=== PATIENT | female | born 1945 | race Caucasian/White ===

== ENCOUNTER 2018-11-09 20:07 | Inpatient (IN) | payer MEDICARE ==
[~2018-11-09] VITALS: Ht 157.5 cm; Wt 102.0 kg
[2018-11-09 20:00] VITALS: BP 125/51
--- NOTE | 2018-11-09 20:35 | NUR ---
PATIENT ARRIVED TO ICU VIA MED FLIGHT. PATIENT INTUBATED IN ROUTE, SEE [facility] VENT FLOWSHEET. RESTRAINTS IN USE. INITIAL ADMISSION ASSESSMENT COMPLETED, SEE FLOWSHEET. FAMILY NOT PRESENT AT THIS TIME. WILL MONITOR CLOSELY THROUGH OUT THE NIGHT.
[2018-11-09 21:00] VITALS: BP 105/66; BP 97/57; BMI 10.0
[2018-11-09 22:00] VITALS: BP 112/64
[2018-11-09 23:00] VITALS: BP 104/50; BP 97/65
--- NOTE | 2018-11-09 23:00 | NUR ---
PATIENT WAKING UP, COUGHING AND BITING ON OETT. VENT BUNDLE ORDER PLACED AND SEDATION ORDERS. SHIFT REASSESSMENT COMPLETED, SEE FLOWSHEET. DR. PARKINSON AT BEDSIDE TO ASSESS PATIENT AND PUT IN ORDERS. CXR DONE AND SHE VIEWED IT. ANTIBIOTICS ALSO ORDERED AT THIS TIME. VSS. NO ACUTE CHANGES NOTED. WILL CTM.
[2018-11-09 23:47] LABS: BASOPHILS 0.1 % (0-2); EOSINOPHILS 0.6 % (0-7); HEMATOCRIT 36.6 % (36.0-48.0); HEMOGLOBIN 10.5 g/dL (12-16); IMMATURE GRANULOCYTES 0.3 % (0-5); LYMPHOCYTES 10.6 % (15-50); MCH 29.1 pg (26.0-34.0); MCHC 28.7 g/dL (31.0-37.0); MCV 101.4 fL (80.0-100.0); MEAN PLATELET VOLUME 10.6 fL (7.4-10.4); MONOCYTES 6.9 % (2-11); NEUTROPHILS 81.5 % (40-80); PLATELET COUNT 117 10x3/uL (130-400); RBC 3.61 10x6/uL (4.00-5.40); RDW 15.7 % (11.5-14.5); WBC 11.9 10x3/uL (4.8-10.8)
[2018-11-10] VITALS (24 sets, daily range): BP systolic 90–142; BP diastolic 41–84
[2018-11-10 00:48] LABS: ALBUMIN 2.6 g/dL (3.4-5.0); ALKALINE PHOSPHATASE 49 U/L (46-116); ALT (SGPT) 28 U/L (10-68); BILIRUBIN - TOTAL 0.84 mg/dL (0.2-1.3); CALC OSMOLALITY 286 mosm/kg (275-300); CALCIUM 8.1 mg/dL (8.5-10.1); CHLORIDE - SERUM 90 mmol/L (98-107); CREATININE - SERUM 0.8 mg/dL (0.6-1.3); GLUCOSE 102 mg/dL (74-106); POTASSIUM - SERUM 4.7 mmol/L (3.5-5.1); PROTEIN - SERUM 5.4 g/dL (6.4-8.2); SODIUM 140 mmol/L (136-145); UREA NITROGEN 36 mg/dL (7-18); eGFR NON AFRICAN AMERICAN 75 mL/min (90-120)
--- NOTE | 2018-11-10 01:00 | NUR ---
PATIENT APPEARS TO BE RESTING MORE COMFORTABLY WITH THE PROPOFOL IN USE. VSS. WILL CTM.
--- NOTE | 2018-11-10 03:00 | NUR ---
SHIFT REASSESSMENT COMPLETED, SEE FLOWSHEET. VSS. PATIENT RESTING COMFORTABLY. WILL CTM.
[2018-11-10 04:49] LABS: BASOPHILS 0 % (0-2); EOSINOPHILS 0.5 % (0-7); HEMATOCRIT 34.3 % (36.0-48.0); HEMOGLOBIN 9.8 g/dL (12-16); IMMATURE GRANULOCYTES 0.4 % (0-5); LYMPHOCYTES 10.8 % (15-50); MCH 28.7 pg (26.0-34.0); MCHC 28.6 g/dL (31.0-37.0); MCV 100.6 fL (80.0-100.0); MEAN PLATELET VOLUME 10.9 fL (7.4-10.4); MONOCYTES 6.8 % (2-11); NEUTROPHILS 81.5 % (40-80); PLATELET COUNT 120 10x3/uL (130-400); RBC 3.41 10x6/uL (4.00-5.40); RDW 15.6 % (11.5-14.5); WBC 10.8 10x3/uL (4.8-10.8)
[2018-11-10 04:58] LABS: ALBUMIN 2.2 g/dL (3.4-5.0); ALKALINE PHOSPHATASE 44 U/L (46-116); ALT (SGPT) 29 U/L (10-68); BILIRUBIN - TOTAL 0.71 mg/dL (0.2-1.3); CALC OSMOLALITY 287 mosm/kg (275-300); CALCIUM 7.5 mg/dL (8.5-10.1); CHLORIDE - SERUM 95 mmol/L (98-107); CREATININE - SERUM 0.8 mg/dL (0.6-1.3); GLUCOSE 94 mg/dL (74-106); PROTEIN - SERUM 4.9 g/dL (6.4-8.2); SODIUM 141 mmol/L (136-145); UREA NITROGEN 33 mg/dL (7-18); eGFR NON AFRICAN AMERICAN 75 mL/min (90-120)
--- NOTE | 2018-11-10 05:00 | NUR ---
PATIENT MORE AGITATED AND RESTLESS, BITING THE OETT. SEDATION INCREASED TO 15MCG/KG/MIN WITH LITTLE RELIEF, SO INCREASED TO 20MCG/KG/MIN. PATIENT APPEARS TO BE RESTING COMFORTABLY. VSS. WILL CTM.
[2018-11-10 05:05] LABS: CARBON DIOXIDE 45.1 mmol/L (21.0-32.0)
[2018-11-10 06:04] LABS: MAGNESIUM - SERUM 2.7 mg/dL (1.8-2.4)
[2018-11-10 06:05] LABS: PHOSPHOROUS 1.3 mg/dL (2.5-4.9)
--- NOTE | 2018-11-10 07:11 | NUR ---
LYING IN BED ON VENT. PT FOLLOWS COMMANDS AND NODS/SHAKES HEAD. NO ACUTE DISTRESS NOTED. PT TURNED Q2H. WILL CONTINUE PLAN OF CARE.
--- NOTE | 2018-11-10 09:11 | NUR ---
NO ACUTE DISTRESS NOTED. PT LYING IN BED ON VENT. TURNED Q2H. WILL CONTINUE PLAN OF CARE.
--- NOTE | 2018-11-10 11:29 | NUR ---
PER MALA TAYLOR TO ORDER ELECTROLYTE PROTOCOL REGARDING ELECTROLYTE IMBALANCE.
--- NOTE | 2018-11-10 12:31 | NUR ---
FAMILY AT BEDSIDE. UPDATES GIVEN. NO ACUTE DISTRESS NOTED. PT TURNED Q2H. WILL CONTINUE PLAN OF CARE.
--- NOTE | 2018-11-10 14:26 | NUR ---
PHOSPEROUS LEVEL 1.3, WILL REPLACE PER ELECTROLYTE PROTOCOL WHEN RECIEVE FROM PHARMACY.
--- NOTE | 2018-11-10 14:29 | NUR ---
PER DR LOYD, START OGT FEEDS OF PULMOCARE AT 10ML/HR WITH GOAL OF 45ML/HR UNTIL DIETARY CAN SEE PT. FLUSH OF 50ML Q2H.
--- NOTE | 2018-11-10 15:06 | NUR ---
PROPOFOL TITRATED TO ORDER.
--- NOTE | 2018-11-10 16:09 | NUR ---
OGT PLACED AT THIS TIME PER PHYSICIAN ORDERS TO START TUBE FEEDS, 16F, PLACEMENT VERIFIED VIA AUSCULTATION. ALSO SECONDARY IV STARTED TO RT UPPER ARM 22G, FLUSHES WELL. PT TURNED Q2H. FAMILY AT BEDSIDE. NO ACUTE DISTRESS NOTED. WILL START TUBE FEEDS WHEN RECIEVE FROM DIETARY. WILL CONTINUE PLAN OF CARE.
--- NOTE | 2018-11-10 17:00 | NUR ---
TUBE FEEDS STARTED AT THIS TIME PER PHYSICIAN ORDERS. PULMOCARE AT 10ML/HR STARTING RATE. OGT PLACEMENT VERIFIED VIA AUSCULTATION. NO ACUTE DISTRESS NOTED. FAMILY AT BEDSIDE. PT TURNED Q2H. WILL CONTINUE PLAN OF CARE.
--- NOTE | 2018-11-10 20:15 | NUR ---
ABX NOT AVAILABLE IN [facility]. HOUSE SUP NOTIFIED.
[2018-11-11] VITALS (24 sets, daily range): BP systolic 110–158; BP diastolic 40–95; BMI 40.6
[2018-11-11 04:03] LABS: BASOPHILS 0 % (0-2); EOSINOPHILS 0 % (0-7); HEMATOCRIT 32.6 % (36.0-48.0); HEMOGLOBIN 10.1 g/dL (12-16); IMMATURE GRANULOCYTES 0.2 % (0-5); LYMPHOCYTES 3.8 % (15-50); MCH 28.8 pg (26.0-34.0); MEAN PLATELET VOLUME 11.1 fL (7.4-10.4); MONOCYTES 2.8 % (2-11); NEUTROPHILS 93.2 % (40-80); RBC 3.51 10x6/uL (4.00-5.40); WBC 11.1 10x3/uL (4.8-10.8)
[2018-11-11 04:18] LABS: MCV 92.9 fL (80.0-100.0); PLATELET COUNT 147 10x3/uL (130-400)
[2018-11-11 04:33] LABS: ALBUMIN 2.3 g/dL (3.4-5.0); ANION GAP 14.1 mmol/L (8-16); BILIRUBIN - TOTAL 0.52 mg/dL (0.2-1.3); CALCIUM 7.3 mg/dL (8.5-10.1); CARBON DIOXIDE 35.8 mmol/L (21.0-32.0); PROTEIN - SERUM 5.5 g/dL (6.4-8.2)
[2018-11-11 04:51] LABS: CREATININE - SERUM 1.3 mg/dL (0.6-1.3)
[2018-11-11 04:52] LABS: POTASSIUM - SERUM 2.9 mmol/L (3.5-5.1)
[2018-11-11 05:28] LABS: MAGNESIUM - SERUM 2.6 mg/dL (1.8-2.4)
[2018-11-11 05:30] LABS: PHOSPHOROUS 4.6 mg/dL (2.5-4.9)
--- NOTE | 2018-11-11 07:32 | NUR ---
OGT ADVANCED AT THIS TIME AFTER PLACEMENT ASSESSED VIA AUSCULTATION. AFTER ADVANCED, OGT IS NOW IN PROPER PLACE PER AUSCULTATION. NO RESIDUAL NOTED TO OGT. TUBE FEEDS ALSO INCREASED AT THIS TIME FROM 10 TO 20ML/HR. WILL CONTINUE PLAN OF CARE.
--- NOTE | 2018-11-11 08:24 | NUR ---
NO ACUTE DISTRESS NOTED. PT LYING IN BED ON VENT. NO ACUTE DISTRESS NOTED. PT MOVES EXTREMITIES, WHEN ASKING PT TO FOLLOW COMMANDS SHE BEGINS TO SHAKE HEAD, PT NOT CURRENTLY FOLLOWING COMMANDS. TURNED Q2H. WILL CONTINUE PLAN OF CARE.
--- NOTE | 2018-11-11 10:31 | NUR ---
PER DEVELOPMENT PLANNER, ORDER PICC LINE CONSULT.
--- NOTE | 2018-11-11 12:06 | NUR ---
FAMILY AT BEDSIDE. UPDATES GIVEN. NO ACUTE DISTRESS NOTED. WILL CONTNIUE PLAN OF CARE.
--- NOTE | 2018-11-11 12:47 | NUR ---
Nutrition Note: Chart reviewed. Spoke with RN; per , RD to provide goal rate and H20 flushes. Noted current Diprivan rate is 34.9 ml/hr providing 921 kcal/d. Will put order in to advance TF rate to 25 ml/hr with no increase for now (other kcal source Diprivan). H2O flushes 20 ml/hr. RD will continue to monitor pt progress and adjust TF rate as Diprivan rate decreases.
--- NOTE | 2018-11-11 14:37 | NUR ---
LYING IN BED ON VENT AT THIS TIME. NO ACUTE DISTRESS NOTED. PT TURNED Q2H. BED ALARM ON. WILL CONTINUE PLAN OF CARE.
--- NOTE | 2018-11-11 15:05 | MORECARE ---
CASE MANAGEMENT DISCHARGE SUMMARY PATIENT: JUAREZ MCCORMICK UNIT: [id number] ADM DATE: 11/09/18 AGE: 73 : 47 SEX: F ROOM/BED: D.2306 AUTHOR: MAK RAMIREZ PHYSICIAN: REFERRING PHYSICIAN: HEMAL COLE MD DATE OF SERVICE: 11/11/18 Discharge Plan Patient Name: JUAREZ MCCORMICK Facility: [facility]:[place] : 1945 Planned Disposition: Anticipated Discharge Date: Discharge Date: Expected LOS: Initial Reviewer: [email or web address] Initial Review Date: 11/09/2018 Generated: 11/11/18 4:05 pm Patient Name: JUAREZ MCCORMICK Page [id number] at 1505 All edits/amendments must be made on the electronic document DICTATION DATE: 11/11/18 1505 GAMBLING CASHIER: SHAYLA 11/11/18 1505 RPT#: [id number] DC DATE: STATUS: ADM IN [facility] [address] [place] [address] END OF REPORT
--- NOTE | 2018-11-11 16:38 | NUR ---
FAMILY AT BEDSIDE. NO ACUTE DISTRESS NOTED. WILL CONTINUE PLAN OF CARE.
--- NOTE | 2018-11-11 18:08 | NUR ---
POTASSIUM REPLACEMENT PROVIDED VIA ELECTROLYTE PROTOCOL.
--- NOTE | 2018-11-11 19:45 | NUR ---
RECEIVED CARE OF PT, ASSESSMENT PER FLOWSHEET. PT INTUBATED AND SEDATED ON 65 MCG/KG/MIN OF PROPOFOL, SEDATED BUT ABLE TO FOLLOW COMMANDS. HR SR ON CM, PPP, SMITH CATH PATENT, POSITIONED FOR COMFORT, ORAL CARE AND SUCTIONING PROVIDED.
--- NOTE | 2018-11-11 21:15 | NUR ---
NO VISITORS PRESENT AT THIS TIME, VSS, CONT TO MONITOR.
--- NOTE | 2018-11-11 23:30 | NUR ---
REASSESSMENT PER FLOWSHEET, NO ACUTE CHANGES NOTED AT THIS TIME. ORAL CARE AND SUCTIONING PROVIDED, POSITIONED FOR COMFORT, VSS.
[2018-11-12] VITALS (24 sets, daily range): BP systolic 111–151; BP diastolic 44–101
--- NOTE | 2018-11-12 01:40 | NUR ---
PT POSITIONED FOR COMFORT SUPPORTED WITH WEDGES, ORAL CARE PROVIDED.
[2018-11-12 05:35] LABS: BASOPHILS 0.1 % (0-2); EOSINOPHILS 0 % (0-7); HEMATOCRIT 32.9 % (36.0-48.0); HEMOGLOBIN 10.4 g/dL (12-16); IMMATURE GRANULOCYTES 0.4 % (0-5); LYMPHOCYTES 3.3 % (15-50); MCH 29.1 pg (26.0-34.0); MCHC 31.6 g/dL (31.0-37.0); MCV 91.9 fL (80.0-100.0); MEAN PLATELET VOLUME 10.7 fL (7.4-10.4); MONOCYTES 6.1 % (2-11); NEUTROPHILS 90.1 % (40-80); PLATELET COUNT 154 10x3/uL (130-400); RBC 3.58 10x6/uL (4.00-5.40); RDW 16.2 % (11.5-14.5)
[2018-11-12 05:39] LABS: WBC 16.5 10x3/uL (4.8-10.8)
[2018-11-12 06:02] LABS: ALBUMIN 2.4 g/dL (3.4-5.0); ANION GAP 9.5 mmol/L (8-16); BILIRUBIN - TOTAL 0.36 mg/dL (0.2-1.3); CALCIUM 7.4 mg/dL (8.5-10.1); CARBON DIOXIDE 36.1 mmol/L (21.0-32.0); CREATININE - SERUM 1.1 mg/dL (0.6-1.3); MAGNESIUM - SERUM 2.7 mg/dL (1.8-2.4); PHOSPHOROUS 4.9 mg/dL (2.5-4.9); PROTEIN - SERUM 5.8 g/dL (6.4-8.2)
[2018-11-12 06:04] LABS: POTASSIUM - SERUM 2.6 mmol/L (3.5-5.1)
--- NOTE | 2018-11-12 06:21 | NUR ---
1 OF 3 20MEQ KCL RIDERS INITIATED TO TREAT K+ OF 2.6 ON AM LAB PER ELECTROLYTE PROTOCOL.
--- NOTE | 2018-11-12 08:31 | NUR ---
LYING IN BED ON VENT AT THIS TIME. DIPROVAN TITRATED TO ORDER. NO ACUTE DISTRESS NOTED. PT SEDATED, AWAKENS TO DEEP STIMULI. TURNED Q2H. WILL CONTINUE PLAN OF CARE.
--- NOTE | 2018-11-12 10:23 | NUR ---
POTASSIUM REPLACEMENT AND RECHECK PROVIDED VIA ELECTROLYTE PROTOCOL. NO ACUTE DISTRESS NOTED. WILL CONTINUE PLAN OF CARE.
--- NOTE | 2018-11-12 12:58 | NUR ---
PT NOTED MOVING EXTREMITIES TOWARDS BLANKET. NURSE ASKED PT IF SHE WAS HOT. PT NODDED HEAD FOR YES. LINENS REPOSITIONED WELL PT REPOSITIONED. ASKED PT IF SHE WAS MORE COMFORTABLE, SHE NODDED HEAD. FAMILY AT BEDSIDE AT THIS TIME. QUESTIONS ANSWERED. NO ACUTE DISTRESS NOTED. PT TURNED Q2H. WILL CONTINUE PLAN OF CARE.
--- NOTE | 2018-11-12 14:23 | NUR ---
NO ACUTE DISTRESS NOTED. NO CHANGE. PT TURNED Q2H. BED ALARM. DIPROVAN TITRATED TO ORDER. WILL CONTINUE PLAN OF CARE.
--- NOTE | 2018-11-12 16:37 | NUR ---
NO CHANGE. NO ACUTE DISTRESS NOTED. PT FOLLOWS COMMANDS. TURNED Q2H. BED ALARM ON. WILL CONTINUE PLAN OF CARE.
--- NOTE | 2018-11-12 18:20 | NUR ---
SPOKE WITH PTS DAUGHTER. UPDATES GIVEN. PT TURNED Q2H. BED ALARM ON. NO ACUTE DISTRESS NOTED. WILL CONTINUE PLAN OF CARE.
--- NOTE | 2018-11-12 19:00 | NUR ---
RECEIVED PATIENT FROM DAY SHIFT RN. PATIENT INTUBATED AND SEDATED. INITIAL SHIFT ASSESSMENT COMPLETED, SEE FLOWSHEET. FAMILY NOT PRESENT AT THIS TIME. WILL MONITOR CLOSELY THROUGH OUT THE NIGHT.
--- NOTE | 2018-11-12 21:00 | NUR ---
PM MEDS GIVEN PER MD ORDERS, SEE MAR. VSS. NO ACUTE CHANGES NOTED. Q2H TURN IN AFFECT. WILL CTM CLOSELY.
--- NOTE | 2018-11-12 23:00 | NUR ---
SHIFT REASSESSMENT COMPLETED, SEE FLOWSHEET. VSS. NO CHANGES NOTED. WILL CTM.
[2018-11-13] VITALS (24 sets, daily range): BP systolic 90–159; BP diastolic 24–92
--- NOTE | 2018-11-13 01:00 | NUR ---
PATIENT APPEARS TO BE RESTING COMFORTABLY. VSS. WILL CTM.
--- NOTE | 2018-11-13 03:00 | NUR ---
REASSESSMENT COMPLETED, SEE FLOWSHEET. VSS. NO ACUTE CHANGES NOTED AT THIS TIME. WILL CTM.
[2018-11-13 04:30] LABS: BASOPHILS 0 % (0-2); EOSINOPHILS 0 % (0-7); HEMOGLOBIN 10.7 g/dL (12-16); IMMATURE GRANULOCYTES 0.5 % (0-5); LYMPHOCYTES 4.7 % (15-50); MCH 28.6 pg (26.0-34.0); MCHC 31.5 g/dL (31.0-37.0); MCV 90.9 fL (80.0-100.0); MEAN PLATELET VOLUME 10.8 fL (7.4-10.4); MONOCYTES 7.5 % (2-11); NEUTROPHILS 87.3 % (40-80); PLATELET COUNT 153 10x3/uL (130-400); RBC 3.74 10x6/uL (4.00-5.40); WBC 12.9 10x3/uL (4.8-10.8)
--- NOTE | 2018-11-13 05:00 | NUR ---
PATIENT APPEARS TO BE RESTING COMFORTABLY. TF BAG CHANGED. CHG AND SMITH WIPES USED. PATIENT TOLERATED WELL. WILL CTM.
[2018-11-13 05:07] LABS: ALBUMIN 2.4 g/dL (3.4-5.0); ANION GAP 8.5 mmol/L (8-16); BILIRUBIN - TOTAL 0.31 mg/dL (0.2-1.3); CALCIUM 7.3 mg/dL (8.5-10.1); CARBON DIOXIDE 33.4 mmol/L (21.0-32.0); CREATININE - SERUM 0.9 mg/dL (0.6-1.3); MAGNESIUM - SERUM 2.5 mg/dL (1.8-2.4); PHOSPHOROUS 4.7 mg/dL (2.5-4.9); PROTEIN - SERUM 5.6 g/dL (6.4-8.2)
[2018-11-13 05:09] LABS: POTASSIUM - SERUM 2.9 mmol/L (3.5-5.1)
--- NOTE | 2018-11-13 07:28 | NUR ---
REPORT RECIEVED. ASSESSMENT COMPLETE PER FLOW SHEET. VSS. REPOSITIONED ON L SIDE. ORAL ENDOTRACH CARE ADM. WILL CONTINUE TO MONITOR
--- NOTE | 2018-11-13 09:00 | NUR ---
NO VISITORS AT THIS TIME, WILL CON'T TO MONITOR
--- NOTE | 2018-11-13 10:20 | NUR ---
Nutrition follow-up: Pulmocare @ 35 ml/hr with NS flush 2/2 low sodium Diprivan infusing @ 17.5 ml/hr Labs reviewed Wt: 218# When OGT replaced, recommend Pulmocare continue @ 35 ml/hr with increase to goal rate of 40 ml/hr. RDN following.
--- NOTE | 2018-11-13 11:00 | NUR ---
REASSESSMENT COMPLETE, NO CHANGES NOTED, WILL CON'T TO MONITOR
--- NOTE | 2018-11-13 13:05 | NUR ---
DR. ROBIN AT BEDSIDE, BRONCH AT BEDSIDE, PT TOLERATED WELL
--- NOTE | 2018-11-13 15:00 | NUR ---
REASSESSMENT COMPLET EPER FLOW SHEET. VSS. NO NEW CHANGES WILL CONTINUE TO MONITOR
--- NOTE | 2018-11-13 17:25 | NUR ---
COMPLETE BATH AND LINEN CHANGE, PT TOLERATED WELL
--- NOTE | 2018-11-13 19:00 | NUR ---
RECEIVED PATIENT FROM DAY SHIFT RN. PATIENT INTUBATED AND SEDATED. INITIAL SHIFT ASSESSMENT COMPLETED, SEE FLOWSHEET. VSS. WILL MONITOR CLOSELY THROUGH OUT THE NIGHT.
--- NOTE | 2018-11-13 21:00 | NUR ---
PM MEDS GIVEN PER MD ORDERS, SEE JAN. VSS. NO ACUTE CHANGES NOTED. WILL CTM.
--- NOTE | 2018-11-13 23:00 | NUR ---
REASSESSMENT COMPLETED, SEE FLOWSHEET. VSS. PATIENT APPEARS TO BE RESTING COMFORTABLY. WILL CTM.
[2018-11-14] VITALS (24 sets, daily range): BP systolic 79–154; BP diastolic 40–90
--- NOTE | 2018-11-14 01:00 | NUR ---
NO ACUTE CHANGES NOTED. VSS. WILL CTM.
--- NOTE | 2018-11-14 03:00 | NUR ---
REASSESSMENT COMPLETED, SEE FLOWSHEET. VSS. NO ACUTE CHANGES NOTED. WILL CTM.
[2018-11-14 04:12] LABS: BASOPHILS 0.1 % (0-2); EOSINOPHILS 0.1 % (0-7); HEMATOCRIT 32.3 % (36.0-48.0); HEMOGLOBIN 10.3 g/dL (12-16); IMMATURE GRANULOCYTES 0.8 % (0-5); LYMPHOCYTES 6.9 % (15-50); MCHC 31.9 g/dL (31.0-37.0); MEAN PLATELET VOLUME 10.6 fL (7.4-10.4); MONOCYTES 8.2 % (2-11); NEUTROPHILS 83.9 % (40-80); PLATELET COUNT 147 10x3/uL (130-400); RBC 3.55 10x6/uL (4.00-5.40); RDW 16.1 % (11.5-14.5)
[2018-11-14 04:15] LABS: WBC 9.5 10x3/uL (4.8-10.8)
[2018-11-14 04:41] LABS: ALBUMIN 2.1 g/dL (3.4-5.0); ALKALINE PHOSPHATASE 45 U/L (46-116); ALT (SGPT) 21 U/L (10-68); BILIRUBIN - TOTAL 0.28 mg/dL (0.2-1.3); CALC OSMOLALITY 278 mosm/kg (275-300); CALCIUM 7.2 mg/dL (8.5-10.1); CARBON DIOXIDE 31.6 mmol/L (21.0-32.0); CHLORIDE - SERUM 93 mmol/L (98-107); CREATININE - SERUM 0.8 mg/dL (0.6-1.3); GLUCOSE 197 mg/dL (74-106); MAGNESIUM - SERUM 2.3 mg/dL (1.8-2.4); PHOSPHOROUS 4.3 mg/dL (2.5-4.9); POTASSIUM - SERUM 3.2 mmol/L (3.5-5.1); PRO BNP 1086 pg/mL (0-125); SODIUM 131 mmol/L (136-145); UREA NITROGEN 42 mg/dL (7-18); eGFR NON AFRICAN AMERICAN 75 mL/min (90-120)
--- NOTE | 2018-11-14 05:00 | NUR ---
PATIENT APPEARS TO BE RESTING COMFORTABLY. NO ACUTE CHANGES NOTED. VSS. WILL CTM.
--- NOTE | 2018-11-14 06:50 | NUR ---
SEDATION TURNED OFF AT THIS TIME.
--- NOTE | 2018-11-14 07:23 | NUR ---
REPORT RECEIVED. ASSESSMENT COMPLETE PER FLOW SHEET. VSS. PT RESTING COMFORTABLY RT AT BEDSIDE. ORAL ENDOTRACH CARE ADM. WILL CONTINUE TO MONITOR
--- NOTE | 2018-11-14 09:00 | NUR ---
FAMILY CALLED GIVEN UPDATE
--- NOTE | 2018-11-14 10:45 | NUR ---
DR COLE AT BEDSIDE. GIVEN UPDATE.
--- NOTE | 2018-11-14 11:00 | NUR ---
REASSESSMENT COMPLETE PER FLOW SHEET. VSS. NO NEW CHANGES. PT RESTING COMFORTABLY WILL CONTINUE TO MONITOR
--- NOTE | 2018-11-14 11:20 | NUR ---
DAUGHTER AT BEDSIDE. PT NECKLACE GIVEN TO DAUGHTER TO TAKE HOME. WITNESSED BY KENISHA NUÑEZ.
--- NOTE | 2018-11-14 12:47 | NUR ---
FAMILY AT BEDSIDE. GIVEN UDPATE
--- NOTE | 2018-11-14 13:00 | NUR ---
TAKING OVER PT CARE AT THIS TIME.
--- NOTE | 2018-11-14 14:01 | MORECARE ---
CASE MANAGEMENT DISCHARGE SUMMARY PATIENT: JUAREZ MCCORMICK UNIT: [id number] ADM DATE: 11/09/18 AGE: 73 : 47 SEX: F ROOM/BED: D.2306 AUTHOR: MAK RAMIREZ PHYSICIAN: REFERRING PHYSICIAN: HEMAL COLE MD DATE OF SERVICE: 11/14/18 Discharge Plan Patient Name: JUAREZ MCCORMICK Facility: [facility]:[place] : 1945 Planned Disposition: Anticipated Discharge Date: Discharge Date: Expected LOS: Initial Reviewer: [email or web address] Initial Review Date: 11/14/2018 Generated: 11/14/18 3:01 pm Last DP export: 11/11/18 2:05 Patient Name: JUAREZ MCCORMICK Page [id number] at 1401 All edits/amendments must be made on the electronic document DICTATION DATE: 11/14/18 1401 TYRE FINISHER AND EXAMINER: DM 11/14/18 1401 RPT#: [id number] DC DATE: STATUS: ADM IN [facility] [address] [place] [address] END OF REPORT
--- NOTE | 2018-11-14 14:09 | MORECARE ---
CASE MANAGEMENT DISCHARGE SUMMARY PATIENT: JUAREZ MCCORMICK UNIT: [id number] ADM DATE: 11/09/18 AGE: 73 : 47 SEX: F ROOM/BED: D.2306 AUTHOR: MAK RAMIREZ PHYSICIAN: REFERRING PHYSICIAN: HEMAL COLE MD DATE OF SERVICE: 11/14/18 Discharge Plan Patient Name: JUAREZ MCCORMICK Facility: [facility]:[place] : 1945 Planned Disposition: Anticipated Discharge Date: Discharge Date: Expected LOS: Initial Reviewer: [email or web address] Initial Review Date: 11/14/2018 Generated: 11/14/18 3:09 pm DCPIA - Discharge Planning Initial Assessment Updated by [email or web address]: Jaycee Zimmer on 11/14/18 2:03 pm * Is the patient Alert and Oriented? No * How many steps to enter\exit or inside your home? * PCP Jacklyn Kern * Pharmacy [facility] * Preadmission Environment Home with Family * ADLs Independent * Other Equipment shower chair, walker, home 02 and portable, nebulizer * List name and contact numbers for known caregivers / representatives who currently or will assist patient after discharge: Margaret Roque -daughter- [phone] Borck Caldera -significant other- [phone] * Verbal permission to speak to the caregivers and representatives has been obtained from the patient. N/A * Community resources currently utilized None * Additional services required to return to the preadmission environment? No * Can the patient safely return to the preadmission environment? Yes * Has this patient been hospitalized within the prior 30 days at any hospital? Yes Last DP export: 11/14/18 1:01 pm Patient Name: JUAREZ MCCORMICK Page [id number] at 1409 All edits/amendments must be made on the electronic document DICTATION DATE: 11/14/18 1409 CAR ESCORT: SHAYLA 11/14/18 1409 RPT#: [id number] DC DATE: STATUS: ADM IN [facility] [address] [place] [address] END OF REPORT
--- NOTE | 2018-11-14 14:28 | MORECARE ---
CASE MANAGEMENT DISCHARGE SUMMARY PATIENT: JUAREZ MCCORMICK UNIT: [id number] ADM DATE: 11/09/18 AGE: 73 : 47 SEX: F ROOM/BED: D.2306 AUTHOR: ASHLEY,DOC PHYSICIAN: REFERRING PHYSICIAN: HEMAL COLE MD DATE OF SERVICE: 11/14/18 Discharge Plan Patient Name: JUAREZ MCCORMICK Facility: [facility]:[place] : 1945 Planned Disposition: Anticipated Discharge Date: Discharge Date: Expected LOS: Initial Reviewer: [email or web address] Initial Review Date: 11/14/2018 Generated: 11/14/18 3:28 pm Comments DCP- Discharge Planning Updated by [email or web address]: Jaycee Zimmer on 11/14/18 1:[address] Patient Name: JUAREZ MCCORMICK Admission Status: Elective Accout number: [id number] Admission Date: 11-09-2018 : 1945 Admission Diagnosis:ACUTE AND CHRONIC RESPIRATORY FAILURE WITH HYPOXIA Attending: HEMAL COLE Current LOS: 5 Anticipated DC Date: Planned Disposition: Primary Insurance: MEDICARE A & B Discharge Planning Comments: CM met with daughter (Margaret) and significant other (Brock) at patient bedside. Patient is currently on vent. Family stated that patient lived with Brock at their home. Patient does have home 02 with portable tanks and nebulizer at home. Brock states that patient has been admitted within the last 30days in [place] and in [place] for respiratory problems. Family denies any discharge needs at this time. Family plans on patient returning to her home upon discharge. CM will continue to follow and assist as needed with discharge planning / needs. Industrial Refrigeration Mechanic: Jaycee Zimmer DCPIA - Discharge Planning Initial Assessment Updated by [email or web address]: Jaycee Zimmer on 11/14/18 2:03 pm * Is the patient Alert and Oriented? No * How many steps to enter\exit or inside your home? * PCP Jacklyn Kern * Pharmacy [facility] * Preadmission Environment Home with Family * ADLs Independent * Other Equipment shower chair, walker, home 02 and portable, nebulizer * List name and contact numbers for known caregivers / representatives who currently or will assist patient after discharge: Margaret Roque -daughter- [phone] Brock Caldera -significant other- [phone] * Verbal permission to speak to the caregivers and representatives has been obtained from the patient. N/A * Community resources currently utilized None * Additional services required to return to the preadmission environment? No * Can the patient safely return to the preadmission environment? Yes * Has this patient been hospitalized within the prior 30 days at any hospital? Yes Last DP export: 11/14/18 1:09 pm Patient Name: JUAREZ MCCORMICK Page [id number] at 1428 All edits/amendments must be made on the electronic document DICTATION DATE: 11/14/181426 SAMPLE TESTER GRINDER: SHAYLA 11/14/181426 RPT#: [id number] DC DATE: STATUS: ADM IN [facility] [address] [place] [address] END OF REPORT
--- NOTE | 2018-11-14 15:00 | NUR ---
ASSESSMENT COMPLETE PER FLOWSHEET AT THIS TIME. VSS, WILL MONITOR CLOSELY.
--- NOTE | 2018-11-14 17:00 | NUR ---
PT DAUGHTER CALLED AT THIS TIME. UPDATE GIVEN. VSS, WILL CONTINUE TO MONITOR CLOSELY.
--- NOTE | 2018-11-14 19:00 | NUR ---
RECEIVED PATIENT FROM DAY SHIFT RN. PATIENT INTUBATED AND SEDATED. INITIAL ASSESSMENT COMPLETED, SEE FLOWSHEET. VSS. WILL MONITOR CLOSELY THROUGH OUT THE NIGHT.
--- NOTE | 2018-11-14 21:00 | NUR ---
PM MEDS GIVEN PER MD ORDERS, SEE JAN. VSS. NO ACUTE CHANGES NOTED. WILL CTM.
--- NOTE | 2018-11-14 23:00 | NUR ---
SHIFT REASSESSMENT COMPLETED, SEE FLOWSHEET. VSS. NO ACUTE CHANGES NOTED. WILL CTM.
[2018-11-15] VITALS (23 sets, daily range): BP systolic 114–159; BP diastolic 59–119
--- NOTE | 2018-11-15 01:00 | NUR ---
PATIENT APPEARS TO BE RESTING COMFORTABLY. VSS. NO ACUTE CHANGES NOTED. WILL CTM.
--- NOTE | 2018-11-15 03:00 | NUR ---
SHIFT REASSESSMENT COMPLETED, SEE FLOWSHEET. VSS. AM LABS DRAWN. PATIENT RESTING AT THIS TIME. WILL CTM.
[2018-11-15 04:46] LABS: BASOPHILS 0.1 % (0-2); EOSINOPHILS 0.2 % (0-7); HEMATOCRIT 35.9 % (36.0-48.0); HEMOGLOBIN 11.5 g/dL (12-16); LYMPHOCYTES 2.9 % (15-50); MCV 90.7 fL (80.0-100.0); MEAN PLATELET VOLUME 10.9 fL (7.4-10.4); MONOCYTES 6.6 % (2-11); NEUTROPHILS 89.2 % (40-80); PLATELET COUNT 163 10x3/uL (130-400); RBC 3.96 10x6/uL (4.00-5.40); RDW 16.3 % (11.5-14.5)
--- NOTE | 2018-11-15 05:00 | NUR ---
PATIENT APPEARS TO BE RESTING COMFORTABLY. CHG WIPES AND SURE STEP USED THIS MORNING, TOLERATED WELL. VSS. NO ACUTE CHANGES NOTED. WILL CTM.
[2018-11-15 05:01] LABS: CALC OSMOLALITY 281 mosm/kg (275-300); CALCIUM 7.5 mg/dL (8.5-10.1); CARBON DIOXIDE 31.8 mmol/L (21.0-32.0); CHLORIDE - SERUM 96 mmol/L (98-107); CREATININE - SERUM 0.6 mg/dL (0.6-1.3); GLUCOSE 173 mg/dL (74-106); SODIUM 134 mmol/L (136-145); UREA NITROGEN 41 mg/dL (7-18); eGFR NON AFRICAN AMERICAN > 90 mL/min (90-120)
[2018-11-15 05:02] LABS: WBC 14.6 10x3/uL (4.8-10.8)
--- NOTE | 2018-11-15 07:00 | NUR ---
RECEIVED PATIENT AT THIS TIME. BEDSIDE SHIFT REPORT COMPLETE. SHIFT ASSESSMENT COMPLETE PER FLOWSHEET. VSS, WILL MONITOR CLOSELY.
--- NOTE | 2018-11-15 09:00 | NUR ---
PT TURNED AND REPOSITIONED AT THIS TIME FOR COMFORT. PT SEDATION TURNED OFF FOR CPAP TRIALS PER RESPIRATORY. VSS, WILL CONTINUE TO MONITOR CLOSELY.
--- NOTE | 2018-11-15 09:52 | NUR ---
Nutrition follow-up: Pt remains intubated; sedation off for CPAP trials Pulmocare infusing @ 35 ml/hr Labs reviewed Wt: 225# Recommend increasing TF to 50 ml/hr if pt remains intubated to better meet estimated energy needs. RDN following.
--- NOTE | 2018-11-15 11:03 | NUR ---
PT EXTUBATED AT THIS TIME. PLACED ON 4 L NC. RESTRAINTS RELEASED AND DOCUMENTED IN RESTRAINT FLOWSHEET.
--- NOTE | 2018-11-15 12:30 | NUR ---
PATIENT FAMILY PRESENT AT THE BEDSIDE. UPDATE GIVEN. FAMILY AND PT DENY NEEDS. PT RESTING COMFORTABLY WITH NO S/S OF DISTRESS. VSS, WILL MONIOTR CLOSELY.
[2018-11-15 13:16] LABS: FUNGUS STAIN Final report (())
--- NOTE | 2018-11-15 15:00 | NUR ---
REASSESSMENT COMPLETE PER FLOWSHEET. NO ACUTE CHANGES NOTED AT THIS TIME.
[2018-11-15] MEDS ORDERED: CRESTOR20 MG PO (15:08)
[2018-11-15] MEDS ORDERED: SPIRIVA18 MCG INH (15:08)
[2018-11-15] MEDS ORDERED: LEVOTHYROXINE112 MCG PO (15:09)
[2018-11-15] MEDS ORDERED: REGLAN10 MG PO (15:09)
[2018-11-15] MEDS ORDERED: NORVASC5 MG PO (15:10)
[2018-11-15] MEDS ORDERED: FLUTICASONE PRO16 GM NASAL (15:10)
[2018-11-15] MEDS ORDERED: PROTONIX40 MG PO (15:11)
[2018-11-15] MEDS ORDERED: NEURONTIN600 MG PO (15:11)
[2018-11-15] MEDS ORDERED: PREDNISONE10 MG (15:12)
--- NOTE | 2018-11-15 17:00 | NUR ---
ASSISTED PT ON TO BEDPAN AT THIS TIME. PT HAD VERY SMALL, FORMED BOWEL MOVEMENT. SKIN INSPECTED ON BOTTOM- INTACT. VSS, WILL CONTINUE TO MONIOTR CLOSELY.
[2018-11-15 18:09] LABS: ACID FAST SMEAR Negative (()); AFB SPECIMEN PROCESSING Concentration (())
--- NOTE | 2018-11-15 19:00 | NUR ---
REPORT RECIEVED, SHIFT ASSESSMENT COMPLETE, PLEASE SEE FLOW SHEETS FOR DETAILS. CONFUSED TO PLACE AND TIME, REORIENTED. PUPILS EQUAL AND REACTIVE. LLE WEAKER THAN RLE. +4 PITTINE EDEMA IN LE, BILATERAL UE GENERALIZED EDEMA. LUNGS DIMINISHED AND CRACKLES THROUGHOUT. 4L NC ON. 500 PULLED ON I.S.. DENIES PAIN/NEEDS. VSS ATT, BED LOW AND LOCKED, CALL LIGHT IN REACH. WILL CPOC.
[2018-11-15 21:08] LABS: IMMUNOGLOBULIN E 38 IU/mL (0-100)
--- NOTE | 2018-11-15 21:20 | NUR ---
TOLERATED PO WEEL, DENIES PAIN/NEEDS ATT. VSS, BED LOW AND LOCKED, CALL LIGHT IN REACH. WILL CPOC.
--- NOTE | 2018-11-15 23:00 | NUR ---
REASSESSMENT COMPLETE, PLEASE SEE FLOW SHEETS FOR DETAILS. NO ACUTE CHANGES FROM PREVIOUS ASSESSMENT TO NOTE. STILL SLIGHTLY CONFUSED. DENIES PAIN/NEEDS. VSS, BED LOW AND LOCKED, CALL LIGHT IN REACH. WILL CPOC.
[2018-11-16] VITALS (24 sets, daily range): BP systolic 100–153; BP diastolic 56–101
--- NOTE | 2018-11-16 01:00 | NUR ---
SMALL BM CLEANED UP. TOLERATED WELL. DENIES ANY OTHER NEEDS ATT. VSS, BED LOW AND LOCKED, CALL LIGHT IN REACH. WILL CPOC.
--- NOTE | 2018-11-16 03:00 | NUR ---
REASSESSMENT COMPLETE, PLEASE SEE FLOW SHEETS FOR DETAILS. NO ACUTE CHANGES FROM PREVIOUS ASSESSMENT TO NOTE. TURNING ASSISTANCE PROVIDED. DENIES PAIN/NEEDS ATT. BED LOW AND LOCKED, CALL LIGHT IN REACH. VSS, WILL CPOC.
--- NOTE | 2018-11-16 03:45 | NUR ---
ASKED FOR BEDPAN, THIS WAS PROVIDED. VERY SMALL BM CLEANED UP.
--- NOTE | 2018-11-16 04:52 | NUR ---
RESTING, VSS, BED LOW AND LOCKED, CALL LIGHT IN REACH. WILL CPOC.
[2018-11-16 05:38] LABS: BASOPHILS 0.1 % (0-2); EOSINOPHILS 0.1 % (0-7); HEMATOCRIT 36.7 % (36.0-48.0); HEMOGLOBIN 11.6 g/dL (12-16); IMMATURE GRANULOCYTES 1.1 % (0-5); LYMPHOCYTES 2.4 % (15-50); MCHC 31.6 g/dL (31.0-37.0); MCV 91.8 fL (80.0-100.0); MEAN PLATELET VOLUME 10.3 fL (7.4-10.4); MONOCYTES 5.5 % (2-11); NEUTROPHILS 90.8 % (40-80); PLATELET COUNT 172 10x3/uL (130-400); RDW 16.2 % (11.5-14.5); WBC 17.4 10x3/uL (4.8-10.8)
[2018-11-16 06:17] LABS: CALC OSMOLALITY 291 mosm/kg (275-300); CALCIUM 7.9 mg/dL (8.5-10.1); CARBON DIOXIDE 31.6 mmol/L (21.0-32.0); CHLORIDE - SERUM 103 mmol/L (98-107); CREATININE - SERUM 0.7 mg/dL (0.6-1.3); GLUCOSE 166 mg/dL (74-106); MAGNESIUM - SERUM 2.2 mg/dL (1.8-2.4); PHOSPHOROUS 4.7 mg/dL (2.5-4.9); POTASSIUM - SERUM 4.5 mmol/L (3.5-5.1); SODIUM 140 mmol/L (136-145); UREA NITROGEN 38 mg/dL (7-18); eGFR NON AFRICAN AMERICAN 87 mL/min (90-120)
--- NOTE | 2018-11-16 10:23 | NUR ---
O2 SAT DECREASED TO 84% ON 8L. O2 INCREASED TO 9L VIA HIGH FLOW NC. HR 113 SINUS TYCHYCARDIA. RT NOTIFIED. RT AT BEDSIDE AT THIS TIME. INCREASED O2 TO 12L VIA HIGH FLOW NC. WILL CONTINUE TO MONITOR.
--- NOTE | 2018-11-16 10:27 | NUR ---
DR. COLE NOTIFIED OF INCREASE IN HR AND DESATURATION. HE ORDERED A BLOOD GAS.
--- NOTE | 2018-11-16 11:50 | NUR ---
BLOOD GLUCOSE 154. 2 UNITS OF INSULIN REG GIVEN PER SLIDING SCALE. PT ON BIPAP AT 100%. NO FURTHER NEEDS AT THIS TIME. WILL CONTINUE TO MONITOR.
--- NOTE | 2018-11-16 12:10 | NUR ---
URINE CULTURE COLLECTED FROM SMITH CATHETER USING CLEAN TECHNIQUE. DAUGHTER AT BEDSIDE. PT WANTED DAUGHTER TO HELP BATH HER. BATH ITEMS PROVIDED AT THIS TIME. NO OTHER NEEDS. WILL CONTINUE TO MONITOR.
--- NOTE | 2018-11-16 13:33 | NUR ---
REFUSED LUNCH TRAY. DAUGHTER BROUGHT HER A MILKSHAKE. OFF BIPAP TO DRINK MILSHAKE. PLACE BACK ON BIPAP AT THIS TIME. FAMILY REMAINS AT BEDSIDE. NO FURTHER NEEDS AT THIS TIME. WILL CONTINUE TO MONITOR.
--- NOTE | 2018-11-16 15:00 | NUR ---
RE-ASSESSMENT COMPLETED. NO ACUTE CHANGES FROM PREVIOUS ASSESSMENT. PT ON BIPAP AT 100%. ASSISTED ON BED [place]. SMALL AMOUNT OF FORMED, SOFT STOOL NOTED. PERICARE PROVIDED. PULLED UP AND REPOSITIONED FOR COMFORT. NO FURTHER NEEDS AT THIS TIME. WILL CONTINUE TO MONITOR.
--- NOTE | 2018-11-16 16:07 | NUR ---
PT REQUESTED A BREAK FROM BIPAP AT THIS TIME. PLACED HER ON 15L HIGH FLOW NC. OFFERED SOMETHING TO DRINK PT. REFUSED. NO FURTHER NEEDS. WILL CONTINUE TO MONITOR.
--- NOTE | 2018-11-16 16:59 | NUR ---
ASSISTED PT ONTO BEDPAN. SMALL AMOUNT OF STOOL NOTED. PERICARE PROVIDED. REPOSITIONED FOR COMFORT. NO FURTHER NEEDS AT THIS TIME. WILL CONTINUE TO MONITOR.
--- NOTE | 2018-11-16 17:24 | NUR ---
BLOOD GLUCOSE 146. NO INSULIN GIVEN PER SLIDING SCALE. ASSISTED PT WITH DINNER TRAY. ATE A FEW BITES OF CHICKEN AND DUMPLINGS SOUP. BIPAP PLACED BACK ON PT. NO FURTHER NEEDS. WILL CONTINUE TO MONITOR.
--- NOTE | 2018-11-16 18:05 | NUR ---
BLOOD FOR BLOOD CULTURES COLLECTED FROM PICC LINE AT THIS TIME USING CLEAN TECHNIQUE. MEROPEM INITIATED AFTER BLOOD CULTURES COLLECTED.
--- NOTE | 2018-11-16 18:13 | NUR ---
SPOKE WITH DAUGHTER ATUL VIA PHONE. PASS CODE VERIFIED. GAVE BRIEF UPDATE. ASKED WHAT THE NEXT STEP WOULD BE IF THE BIPAP DOES NOT HELP IMPROVE PT BLOOD GASES. SHE STATED THAT THE PATIENT DOES NOT WANT TO BE RE-INTUBATED. ADVICED DAUGHTER TO SPEAK WITH ONE OF THE DOCTORS TOMORROW TO MAKE SURE THE PATIENT'S WISHES ARE RESPECTED.
--- NOTE | 2018-11-16 19:00 | NUR ---
REPORT RECIEVED, SHIFT ASSESSMENT COMPLETE, PLEASE SEE FLOW SHEETS FOR DETAILS. PATIENT ON BIPAP, CONFUSED TO TIME AND PLACE. PROVIDED ORAL CARE AND ASSISTED WITH TURNING. DENIES PAIN ATT. ASKING FOR MASK OFF, EXPLAINED IMPORTANCE OF KEEPING THIS ON, PATIENT WAS OKAY TO KEEP ON. WEAKNESS NOTED THROUGHOUT LIMBS, WORSE IN LLE, FOOTDROP NOTED, PROPPED UP WITH EXTRA BLANKET. VSS ATT, BED LOW AND LOCKED, CALL LIGHT IN REACH. WILL CPOC.
--- NOTE | 2018-11-16 21:00 | NUR ---
RESTING, TOLERATED MEDS WELL. DENIES ANY PAIN/NEEDS ATT. ORAL CARE AND TURNING PROVIDED. VSS, BED LOW AND LOCKED, CALL LIGHT IN REACH. WILL CPOC.
--- NOTE | 2018-11-16 23:00 | NUR ---
REASSESSMENT COMPLETE, PLEASE SEE FLOW SHEETS FOR DETAILS. NO ACUTE CHANGES FROM PREVIOUS ASSESSMENT TO NOTE. DENIES PAIN/NEEDS ATT. ORAL CARE AND TURNING PROVIDED. BIPAP ON, GAVE TEACHING ON REASON TO WEAR AGAIN AND ON HOW TO RELAX AND LET IT WORK. PATIENT COMPLIED. BED LOW AND LOCKED, CALL LIGHT IN REACH. VSS, WILL CPOC.
[2018-11-17] VITALS (24 sets, daily range): BP systolic 107–147; BP diastolic 62–96
--- NOTE | 2018-11-17 05:24 | NUR ---
SLEEPING, VSS, BED LOW AND LOCKED, CALL LIGHT IN REACH. WILL CPOC.
--- NOTE | 2018-11-17 08:03 | NUR ---
UP IN BED ON BIPAP AT THIS TIME RESTING. RESPIRATIONS STEADY AND UNLABORED. NO ACUTE DISTRESS NOTED. AWAKENS EASILY WHEN SPOKEN TO. ABLE TO STATE NEEDS. CALL LIGHT IN REACH. WILL CONTINUE PLAN OF CARE.
[2018-11-17 09:05] LABS: BASOPHILS 0.1 % (0-2); EOSINOPHILS 0 % (0-7); HEMATOCRIT 35.4 % (36.0-48.0); HEMOGLOBIN 11.1 g/dL (12-16); IMMATURE GRANULOCYTES 0.7 % (0-5); LYMPHOCYTES 2.9 % (15-50); MCH 28.9 pg (26.0-34.0); MCHC 31.4 g/dL (31.0-37.0); MCV 92.2 fL (80.0-100.0); MEAN PLATELET VOLUME 10.4 fL (7.4-10.4); NEUTROPHILS 90.3 % (40-80); PLATELET COUNT 178 10x3/uL (130-400); RBC 3.84 10x6/uL (4.00-5.40); RDW 16.8 % (11.5-14.5); WBC 17.6 10x3/uL (4.8-10.8)
[2018-11-17 09:22] LABS: ALBUMIN 2.2 g/dL (3.4-5.0); ALKALINE PHOSPHATASE 45 U/L (46-116); ALT (SGPT) 26 U/L (10-68); BILIRUBIN - TOTAL 0.34 mg/dL (0.2-1.3); CALC OSMOLALITY 293 mosm/kg (275-300); CALCIUM 8.1 mg/dL (8.5-10.1); CARBON DIOXIDE 31.6 mmol/L (21.0-32.0); CHLORIDE - SERUM 104 mmol/L (98-107); CREATININE - SERUM 0.6 mg/dL (0.6-1.3); GLUCOSE 165 mg/dL (74-106); POTASSIUM - SERUM 4.2 mmol/L (3.5-5.1); PROTEIN - SERUM 5.1 g/dL (6.4-8.2); SODIUM 140 mmol/L (136-145); UREA NITROGEN 44 mg/dL (7-18); eGFR NON AFRICAN AMERICAN > 90 mL/min (90-120)
--- NOTE | 2018-11-17 10:11 | NUR ---
PER PTS FAMILY, THEY WISH TO DISCUSS WITH PT BEFORE DECIDING ANY FURTHER MEASURES SUCH BRONCHOSCOPY.
--- NOTE | 2018-11-17 13:27 | NUR ---
FAMILY AT BEDSIDE. NO ACUTE DISTRESS NOTED. HAVE SPOKEN WITH DIRECTOR CLIENT. ALL QUESTIONS ANDSWERED. WILL CONTINUE PLAN OF CARE.
--- NOTE | 2018-11-17 15:56 | NUR ---
LYING IN BED RESTING IN BED AT THIS TIME. NO ACUTE DISTRESS NOTED. RESPIRATIONS STEADY AND UNLABORED. PT TURNED Q2H. AWAKENS WHEN SPOKEN TO. WILL CONTINUE PLAN OF CARE.
--- NOTE | 2018-11-17 17:44 | NUR ---
CALL LIGHT IN REACH. NO ACUTE DISTRESS NOTED. PT ABLE TO STATE NEEDS. TURNED Q2H. WILL CONTINUE PLAN OF CARE.
[2018-11-18] VITALS (24 sets, daily range): BP systolic 64–143; BP diastolic 43–97; Ht 157.5 cm; Wt 102.0 kg
--- NOTE | 2018-11-18 04:42 | NUR ---
PLACED BIPAP BACK ON PATIENT DUE TO ABG'S WITH CO2 OF 65 AT THIS TIME.
[2018-11-18 05:35] LABS: BASOPHILS 0.1 % (0-2); EOSINOPHILS 0 % (0-7); HEMATOCRIT 35.9 % (36.0-48.0); HEMOGLOBIN 11.2 g/dL (12-16); IMMATURE GRANULOCYTES 1.2 % (0-5); LYMPHOCYTES 2.2 % (15-50); MCHC 31.2 g/dL (31.0-37.0); MEAN PLATELET VOLUME 9.9 fL (7.4-10.4); NEUTROPHILS 92.5 % (40-80); PLATELET COUNT 174 10x3/uL (130-400); RBC 3.86 10x6/uL (4.00-5.40); RDW 16.5 % (11.5-14.5); WBC 13.9 10x3/uL (4.8-10.8)
[2018-11-18 05:48] LABS: CALC OSMOLALITY 306 mosm/kg (275-300); CALCIUM 8.2 mg/dL (8.5-10.1); CARBON DIOXIDE 32.9 mmol/L (21.0-32.0); CHLORIDE - SERUM 106 mmol/L (98-107); CREATININE - SERUM 0.7 mg/dL (0.6-1.3); GLUCOSE 188 mg/dL (74-106); POTASSIUM - SERUM 4.8 mmol/L (3.5-5.1); SODIUM 145 mmol/L (136-145); UREA NITROGEN 50 mg/dL (7-18); eGFR NON AFRICAN AMERICAN 87 mL/min (90-120)
--- NOTE | 2018-11-18 07:08 | NUR ---
REPORT RECIEVED, SHIFT ASSESSMENT COMPLETE, PT IS ALERT ON 75% BIPAP WITH 97% O2 SAT. ALL PPP, VSS, CALL LIGHT IN REACH
--- NOTE | 2018-11-18 07:24 | NUR ---
2030-SHIFT ASSESSMENT COMPLETE. NO DISTRESS NOTED. CALL LIGHT WITHIN REACH, BED IN LOW POSITION. 2300-REASSESSMENT COMPLETE NO CHANGES IN CONDITION. CALL LIGHT WITHIN REACH. 0100-PATIENT AROUSES EASILY TO VOICE, REPOSITIONED FOR COMFORT AND SKIN CARE. CALL LIGHT WITHIN REACH. 0313-REASSESSMENT COMPLETE. NO CHANGES IN PATIENT CONDITION. CALL LIGHT WITHIN REACH, BED IN LOW POSITION. JELLO REQUEST AND PATIENT TOLERATED WELL. 0500-PAITENT REPOISITIONED FOR COMFORT; DENIES ANY NEEDS AT THIS TIME. CALL LIGHT WITHIN REACH, BED IN LOW POSITION.
--- NOTE | 2018-11-18 09:18 | NUR ---
NO VISITORS AT THIS TIME, WILL CON'T TO MONITOR
--- NOTE | 2018-11-18 10:31 | NUR ---
Nutrition follow-up: Pt extubated 11/15/18 Diet advanced to mechanical soft with thin liquids PO intake poor at this time Wt: 224# Will provide food choices with selective menus and honor food preferences. RDN will order Glucerna Shake with meals RDN following.
--- NOTE | 2018-11-18 11:19 | NUR ---
UPDATE GIVEN TO FAMILY OVER PHONE, PASSWORD GIVEN
--- NOTE | 2018-11-18 13:25 | NUR ---
DR. LOYD AT BEDSIDE, UPDATE GIVEN
--- NOTE | 2018-11-18 15:45 | NUR ---
REASSESSMENT COMPLET EPER FLOW SHEET. VSS. NO NEW CHANGES WILL CONTINUE TO MONITOR
--- NOTE | 2018-11-18 17:06 | NUR ---
DR LOYD AT BEDSIDE. BRONCH SET UP AT THIS TIME.
--- NOTE | 2018-11-18 17:28 | NUR ---
BRONCH COMPLETE, PT TOLERATED WELL
[2018-11-18 19:33] LABS: BASOPHILS 0.1 % (0-2); EOSINOPHILS 0 % (0-7); HEMATOCRIT 36.8 % (36.0-48.0); HEMOGLOBIN 11.5 g/dL (12-16); IMMATURE GRANULOCYTES 0.7 % (0-5); LYMPHOCYTES 4.3 % (15-50); MCH 28.9 pg (26.0-34.0); MCHC 31.3 g/dL (31.0-37.0); MCV 92.5 fL (80.0-100.0); MEAN PLATELET VOLUME 11.2 fL (7.4-10.4); MONOCYTES 3.1 % (2-11); NEUTROPHILS 91.8 % (40-80); PLATELET COUNT 199 10x3/uL (130-400); RBC 3.98 10x6/uL (4.00-5.40); RDW 16.7 % (11.5-14.5); WBC 14.1 10x3/uL (4.8-10.8)
[2018-11-18 19:37] LABS: INR 0.95 (0.85-1.17); PROTIME 12.2 SECONDS (11.6-15.0)
--- NOTE | 2018-11-18 23:25 | NUR ---
2245-REPORT CALLED TO [facility] SPOKE WITH CHANI STERN LPN. 2255-PATIENT TRANSFERRED TO [facility]-SUR[facility] ROOM 2231 VIA W/C IN GOOD STABLE CONDITION. PATIENT REQUIRED MINIMAL ASSISTANCE TO TRANSFER. ALERT AND ORIENTED. RIGHT IJ INTACT WITHOUT REDNESS OR EDEMA NOTED. ALL BELONGINGS TRANSFERED WITH PATIENT.
[2018-11-19] VITALS (17 sets, daily range): BP systolic 90–150; BP diastolic 37–108
[2018-11-19 06:28] LABS: BASOPHILS 0.1 % (0-2); EOSINOPHILS 0 % (0-7); HEMATOCRIT 35.4 % (36.0-48.0); IMMATURE GRANULOCYTES 0.8 % (0-5); LYMPHOCYTES 2.6 % (15-50); MCH 28.8 pg (26.0-34.0); MCHC 31.1 g/dL (31.0-37.0); MCV 92.7 fL (80.0-100.0); MEAN PLATELET VOLUME 10.4 fL (7.4-10.4); MONOCYTES 6.2 % (2-11); NEUTROPHILS 90.3 % (40-80); PLATELET COUNT 183 10x3/uL (130-400); RBC 3.82 10x6/uL (4.00-5.40); RDW 16.8 % (11.5-14.5); WBC 14.1 10x3/uL (4.8-10.8)
[2018-11-19 06:42] LABS: CALC OSMOLALITY 311 mosm/kg (275-300); CALCIUM 8.5 mg/dL (8.5-10.1); CARBON DIOXIDE 32.8 mmol/L (21.0-32.0); CHLORIDE - SERUM 109 mmol/L (98-107); CREATININE - SERUM 0.7 mg/dL (0.6-1.3); GLUCOSE 158 mg/dL (74-106); MAGNESIUM - SERUM 2.4 mg/dL (1.8-2.4); POTASSIUM - SERUM 4.8 mmol/L (3.5-5.1); SODIUM 148 mmol/L (136-145); UREA NITROGEN 55 mg/dL (7-18); eGFR NON AFRICAN AMERICAN 87 mL/min (90-120)
--- NOTE | 2018-11-19 07:30 | NUR ---
REPORT RECIEVED, SHIFT ASSESSMENT COMPLETE, PT IS ALERT AND ORIENTED, ON 70% BIPAP, ALL PPP, VSS, CALL LIGHT IN REACH
--- NOTE | 2018-11-19 09:27 | NUR ---
FAMILY AT BEDSIDE, UPDATE GIVEN
--- NOTE | 2018-11-19 11:15 | NUR ---
REASSESSMENT COMPLETE PER FLOW SHEET. VSS NO NEW CHANGES WILL CONTNIUE TO MONITOR
--- NOTE | 2018-11-19 12:10 | NUR ---
DR LOYD AT BEDSIDE. SPOKE WITH FAMILY AT PT AT GREAT LENGTH DIAGNOSIS. PT AND FAMILY CHOSE TO DO HOSPICE AT THIS TIME PER PT WISHES. ALL FAMILY IN AGREEANCE. [facility] CASE MANAGEMENT NOTIFIED
--- NOTE | 2018-11-19 13:00 | NUR ---
RECEIVED PATIENT AT THIS TIME. PT DAUGHTER, YOSSI, PRESENT AT THE BEDSIDE. PLAN IS FOR PATIENT TO GO TO INPATIENT HOSPICE IN [place]. CASE MANAGEMENT IS ON THE CASE. ASSESSMENT COMPLETE. PT RESTING COMFORTABLY AT THIS TIME AND DENIES ANY NEEDS. VSS, WILL MONITOR CLOSELY.
--- NOTE | 2018-11-19 13:05 | NUR ---
REPORT GIVEN TO ABDIAS. STATES UNDERSTANDING. VSS. NO NEW CHANGES
--- NOTE | 2018-11-19 13:15 | MORECARE ---
CASE MANAGEMENT DISCHARGE SUMMARY PATIENT: JUAREZ MCCORMICK UNIT: [id number] ADM DATE: 11/09/18 AGE: 73 : 47 SEX: F ROOM/BED: D.2306 AUTHOR: ASHLEY,DOC PHYSICIAN: REFERRING PHYSICIAN: HEMAL COLE MD DATE OF SERVICE: 11/19/18 Discharge Plan Patient Name: JUAREZ MCCORMICK Facility: [facility]:[place] : 1945 Planned Disposition: Anticipated Discharge Date: Discharge Date: Expected LOS: Initial Reviewer: [email or web address] Initial Review Date: 11/14/2018 Generated: 11/19/18 2:15 pm Comments DCP- Discharge Planning Updated by [email or web address]: Jaycee Zimmer on 11/14/18 1:[address] Patient Name: JUAREZ MCCORMICK Admission Status: Elective Accout number: [id number] Admission Date: 11-09-2018 : 1945 Admission Diagnosis:ACUTE AND CHRONIC RESPIRATORY FAILURE WITH HYPOXIA Attending: HEMAL COLE Current LOS: 5 Anticipated DC Date: Planned Disposition: Primary Insurance: MEDICARE A & B Discharge Planning Comments: CM met with daughter (Margaret) and significant other (Brock) at patient bedside. Patient is currently on vent. Family stated that patient lived with Brock at their home. Patient does have home 02 with portable tanks and nebulizer at home. Brock states that patient has been admitted within the last 30days in [place] and in [place] for respiratory problems. Family denies any discharge needs at this time. Family plans on patient returning to her home upon discharge. CM will continue to follow and assist as needed with discharge planning / needs. Cupola Worker: Jaycee Zimmer DCPIA - Discharge Planning Initial Assessment Updated by [email or web address]: Jaycee Zimmer on 11/14/18 2:03 pm * Is the patient Alert and Oriented? No * How many steps to enter\exit or inside your home? * PCP Jacklyn Kern * Pharmacy [facility] * Preadmission Environment Home with Family * ADLs Independent * Other Equipment shower chair, walker, home 02 and portable, nebulizer * List name and contact numbers for known caregivers / representatives who currently or will assist patient after discharge: Margaret Roque -daughter- [phone] Brock Caldera -significant other- [phone] * Verbal permission to speak to the caregivers and representatives has been obtained from the patient. N/A * Community resources currently utilized None * Additional services required to return to the preadmission environment? No * Can the patient safely return to the preadmission environment? Yes * Has this patient been hospitalized within the prior 30 days at any hospital? Yes External Providers External Provider: [facility] *(provides inpt [facility] Next Contact Date: Service Request Date: Service Type: Resolution: Reviewer: Comments: Last DP export: 11/14/18 1:28 pm Patient Name: JUAREZ MCCORMICK Page [id number] at 1315 All edits/amendments must be made on the electronic document DICTATION DATE: 11/19/18 1315 PAINTER TUMBLING BARREL: SHAYLA 11/19/18 1315 RPT#: [id number] DC DATE: STATUS: ADM IN [facility] [address] [place] [address] END OF REPORT
--- NOTE | 2018-11-19 14:28 | MORECARE ---
CASE MANAGEMENT DISCHARGE SUMMARY PATIENT: JUAREZ MCCORMICK UNIT: [id number] ADM DATE: 11/09/18 AGE: 73 : 47 SEX: F ROOM/BED: D.2306 AUTHOR: ASHLEY,DOC PHYSICIAN: REFERRING PHYSICIAN: HEMAL COLE MD DATE OF SERVICE: 11/19/18 Discharge Plan Patient Name: JUAREZ MCCORMICK Facility: [facility]:[place] : 1945 Planned Disposition: Anticipated Discharge Date: Discharge Date: Expected LOS: Initial Reviewer: [email or web address] Initial Review Date: 11/14/2018 Generated: 11/19/18 3:28 pm Comments DCP- Discharge Planning Updated by [email or web address]: Jaycee Zimmer on 11/19/18 1:[address] CM notified that patient and family requested Hospice. CM spoke with daughter and patient is requesting Hospice in [place]. CM contacted [facility] and faxed over records. [facility] will come to evaluate patient for inpatient GIP in [place]. CM will continue to follow and assist as needed with discharge planning. DCP- Discharge Planning Updated by [email or web address]: Jaycee Zimmer on 11/14/18 1:[address] Patient Name: JUAREZ MCCORMICK Admission Status: Elective Accout number: [id number] Admission Date: 11-09-2018 : 1945 Admission Diagnosis:ACUTE AND CHRONIC RESPIRATORY FAILURE WITH HYPOXIA Attending: HEMAL COLE Current LOS: 5 Anticipated DC Date: Planned Disposition: Primary Insurance: MEDICARE A & B Discharge Planning Comments: CM met with daughter (Margaret) and significant other (Brock) at patient bedside. Patient is currently on vent. Family stated that patient lived with Brock at their home. Patient does have home 02 with portable tanks and nebulizer at home. Brock states that patient has been admitted within the last 30days in [place] and in [place] for respiratory problems. Family denies any discharge needs at this time. Family plans on patient returning to her home upon discharge. CM will continue to follow and assist as needed with discharge planning / needs. Nut Processing Supervisor: Jaycee Zimmer DCPIA - Discharge Planning Initial Assessment Updated by [email or web address]: Jaycee Zimmer on 11/14/18 2:03 pm * Is the patient Alert and Oriented? No * How many steps to enter\exit or inside your home? * PCP Jacklyn Kern * [facility]acy [facility] * Preadmission Environment Home with Family * ADLs Independent * Other Equipment shower chair, walker, home 02 and portable, nebulizer * List name and contact numbers for known caregivers / representatives who currently or will assist patient after discharge: Margaret Roque -daughter- [phone] Brock Caldera -significant other- [phone] * Verbal permission to speak to the caregivers and representatives has been obtained from the patient. N/A * Community resources currently utilized None * Additional services required to return to the preadmission environment? No * Can the patient safely return to the preadmission environment? Yes * Has this patient been hospitalized within the prior 30 days at any hospital? Yes Last DP export: 11/19/18 12:15 pm Patient Name: JUAREZ MCCORMICK Page [id number] at 1428 All edits/amendments must be made on the electronic document DICTATION DATE: 11/19/181426 INKER: SHAYLA 11/19/181426 RPT#: [id number] DC DATE: STATUS: ADM IN [facility] [address] [place] [address] END OF REPORT
--- NOTE | 2018-11-19 14:48 | NUR ---
HOSPICE BY TO EVALUATE PATIENT AT THIS TIME.
--- NOTE | 2018-11-19 15:00 | NUR ---
REASSESSMENT COMPLETE PER FLOWSHEET. VSS, WILL CONTINUE TO MONITOR CLOSELY.
--- NOTE | 2018-11-19 16:22 | NUR ---
HOSPICE DENIED PATIENT AT THIS TIME. TELEPHONE ORDERS GIVEN BY DR. ANTON TO TRANSFER PT BACK TO [place] SINCE WE ARE NO LONGER OFFERING A HIGHER LEVEL OF CARE. CASE MANANAGEMENT ASSISTING WITH THIS PROCESS. FAMILY AND PATIENT AWARE AND CONSENT.
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
[2018-11-19 20:08] LABS: ACID FAST SMEAR Negative (()); AFB SPECIMEN PROCESSING Concentration (())
[2018-11-20] VITALS (21 sets, daily range): BP systolic 84–172; BP diastolic 46–99
[2018-11-20 04:28] LABS: BASOPHILS 0.1 % (0-2); EOSINOPHILS 0 % (0-7); HEMATOCRIT 34.8 % (36.0-48.0); IMMATURE GRANULOCYTES 0.8 % (0-5); LYMPHOCYTES 2.1 % (15-50); MCH 29.2 pg (26.0-34.0); MCHC 31.6 g/dL (31.0-37.0); MCV 92.3 fL (80.0-100.0); MEAN PLATELET VOLUME 10.4 fL (7.4-10.4); MONOCYTES 4.3 % (2-11); NEUTROPHILS 92.7 % (40-80); PLATELET COUNT 176 10x3/uL (130-400); RBC 3.77 10x6/uL (4.00-5.40); RDW 16.6 % (11.5-14.5); WBC 13.6 10x3/uL (4.8-10.8)
[2018-11-20 04:46] LABS: CALC OSMOLALITY 313 mosm/kg (275-300); CALCIUM 8.4 mg/dL (8.5-10.1); CARBON DIOXIDE 31.7 mmol/L (21.0-32.0); CHLORIDE - SERUM 110 mmol/L (98-107); CREATININE - SERUM 0.6 mg/dL (0.6-1.3); GLUCOSE 158 mg/dL (74-106); MAGNESIUM - SERUM 2.2 mg/dL (1.8-2.4); POTASSIUM - SERUM 4.5 mmol/L (3.5-5.1); SODIUM 149 mmol/L (136-145); UREA NITROGEN 54 mg/dL (7-18); eGFR NON AFRICAN AMERICAN > 90 mL/min (90-120)
--- NOTE | 2018-11-20 07:15 | NUR ---
REPORT RECIEVED, SHIFT ASSESSMENT COMPLETE, PT IS ALERT AND ORIENTED, ON BIPAP AT THIS TIME, ALL PPP, VSS, WILL CON'T TO MONITOR
--- NOTE | 2018-11-20 09:20 | NUR ---
PT PLACED ON BEDPAN AT THIS TIME, LG BM AT THIS TIME,
--- NOTE | 2018-11-20 10:33 | NUR ---
Nutrition follow-up: Pt now NPO; BIPAP in place Labs reviewed Wt: 224# +BM Noted hospice consult. RDN following.
--- NOTE | 2018-11-20 11:38 | NUR ---
REASSESSMENT COMPLETE PER FLOW SHEET. PT RESTING COMFORTABLY VSS DENIES NEEDS AT THSI TIME. WILL CONTINUE OT MONITOR
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
--- NOTE | 2018-11-20 13:00 | NUR ---
RECEIVED PATIENT AT THIS TIME. PATIENT RESTING COMFORTABLY IN BED WITH FAMILY PRESENT AT THE BEDSIDE. WHITE BOARD UPDATED. VSS, WILL MONITOR CLOSELY.
[2018-11-20 13:20] LABS: FUNGUS STAIN Final report (())
[2018-11-20 13:20] LABS: FUNGUS STAIN Final report (())
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
--- NOTE | 2018-11-20 14:13 | NUR ---
PATIENT NOW ACCEPTED TO INPATIENT HOSPICE IN [place]. DAUGHTER NOTIFIED. DR. MUÑOZ NOTIFIED. WILL GET PAPERWORK TOGETHER FOR TRANSFER.
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
--- NOTE | 2018-11-20 16:13 | NUR ---
PT TRANSFER FORM COMPLETED, FAMILY NOTIFIED, PATIENT NOTIFIED, AND AMBULANCE SERVICE NOTIFIED. FORM SIGNED AND FAXED TO [employer]. REPORT CALLED TO JOAQUIN JESUS AT [facility] IN [place], [place]. AMBULANCE WILL CALL WHEN READY TO PICK PATIENT UP.
[2018-11-20 16:17] LABS: ACID FAST SMEAR Negative (()); AFB SPECIMEN PROCESSING Concentration (())
--- NOTE | 2018-11-20 19:10 | NUR ---
PT RECEIVED ON BIPAP 70%. PT WITHOUT S/S OF DISTRESS. DENIES PAIN. REPORT RECEIVED PT TO BE TRANSFERRED TO [facility]. WILL CONTINUE TO OBSERVE.
--- NOTE | 2018-11-20 19:45 | CN ---
PATIENT NAME:JUAREZ DAVIS MEDICAL RECORD: [id number] : 49 LOCATION:[facility].2306 ADMIT DATE: 11/09/18 ACCOUNT: [id number] CONSULTING PHYSICIAN: CALLUM LOYD MD REFERRING PHYSICIAN: HEMAL COLE MD DATE OF CONSULTATION: 11/10/2018 CONSULT REQUESTING PHYSICIAN: Collin Branham MD REASON FOR CONSULTATION: Vent management, acute exacerbation of COPD, pneumonia. HISTORY OF PRESENT ILLNESS: Ms. Davis is a 73-year-old female with history of COPD, tobacco dependence syndrome, and history of CA of the lung with right upper lobe lobectomy. The patient was transferred from [place] with pneumonia and worsening shortness of breath. The patient went into respiratory distress and she was intubated en route in the helicopter. REVIEW OF THE SYSTEMS: The detail is not obtainable. PAST MEDICAL HISTORY: 1. COPD. 2. History of CA of the lung. 3. She is status post right lobectomy. ALLERGIES: SHE IS ALLERGIC TO SULFA. MEDICATIONS: [employer] was reviewed. PERSONAL AND SOCIAL HISTORY: The patient is still current everyday smoker. She is nondrinker. FAMILY HISTORY: Noncontributory. PHYSICAL EXAMINATION: GENERAL: Now, the patient is orally intubated and sedated. VITAL SIGNS: The blood pressure is 116/55, pulse is 72, respiration is 13, temperature is 99.3, and SpO2 is 98%. She is on 70% oxygen on assist control mechanical ventilation. HEENT: Conjunctivae are pink. Sclerae are not icteric. NECK: Neck is supple. No JVD. CHEST: The chest excursion is minimal on both sides with bibasal crackles. No wheezing. HEART: Rhythm regular. Normal sound. No murmur. ABDOMEN: Abdomen is soft. Bowel sounds present. No hepatosplenomegaly. RECTAL: Deferred. EXTREMITIES: No cyanosis. No clubbing. Pedal edema 1+. CENTRAL NERVOUS SYSTEM: The patient is orally intubated and sedated. DIAGNOSTIC DATA: Chest radiograph; there is atelectasis and infiltrate in lateral left lung base. There is mild interstitial prominence. The ET tube is in good position. LABORATORY DATA: CBC; WBC is 11.9, hemoglobin 10.5, hematocrit 36.6, and platelet count is 117. Chemistry; sodium 141, potassium is 4, BUN is 33, and CONSULT REPORT [id number] JUAREZ DAVIS creatinine 0.8. ABG; the pH is 7.59, pCO2 is 50.1, pO2 is 88, and bicarb is 48. IMPRESSION: 1. Acute hypoxic hypercapnic respiratory failure. 2. Pneumonia, left lower lobe, most likely community-acquired pneumonia. 3. Acute exacerbation of COPD. 4. Overcompensatory metabolic alkalosis. 5. Tobacco dependence syndrome. 6. History of CA of the lung with right upper lobe lobectomy. RECOMMENDATION: 1. Continue mechanical ventilation. I will change it to SIMV. Adjust the setting. 2. DVT and GI prophylaxes. 3. Continue empiric antibiotic. 4. Methylprednisolone IV. 5. Brovana and budesonide nebulizer. 6. Albuterol/ipratropium nebulizer. 7. Check the sputum culture. 8. Follow up labs and chest radiograph. I discussed with Dr. Collin Branham. The critical care time is 50 minutes. Thank you for involving me in the care of Ms. Davis. TRANSINT:[id number] Voice Confirmation ID: [id number] DOCUMENT ID: [id number] CALLUM LOYD MD at 1943 CC: [id number] DICTATION DATE: 11/10/18 1555 [employer]ITION[employer] ATTORNEY: 11/10/[address] [facility] [address] [id number]
--- NOTE | 2018-11-20 19:45 | OP ---
PATIENT NAME: JUAREZ DAVIS MEDICAL RECORD: [id number] :49 LOCATION:[facility] D.2306 ADMISSION DATE:11/09/18 SURGEON: CALLUM LOYD MD DATE OF OPERATION: 11/18/2018 PROCEDURE: Fiberoptic bronchoscopy. INDICATION: Ms. Davis is a 73-year-old female who was transferred from [place] with respiratory failure. Post-extubation, she developed total atelectasis of the right lung. She had bronchoscopy yesterday; but this morning, there was again total opacification of the right lung. Fiberoptic bronchoscopy carried out to remove the mucus plugging. PROCEDURE IN DETAIL: After obtaining conscious sedation, the fiberoptic bronchoscope was passed through the mouth. There was a polyp about the vocal cord on the left side. There was thick whitish secretion in the main trachea. 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 The subsegment to the right lower lobe and right middle lobe was within normal range. No endobronchial lesion was seen. The stoma was healthy. The heladio was sharp. There was also yellowish secretion on the left side. No endobronchial lesion was seen. Specimen washing was obtained and sent for routine culture and sensitivity, AFB and fungus, and cytology. Overall, the patient tolerated the procedure very well. TRANSINT:[id number] Voice Confirmation ID: [id number] DOCUMENT ID: [id number] CALLUM LOYD MD at 1943 CC: [id number] DICTATION DATE: 11/18/18 1739 BUYER BROKER: 11/18/18 2153 [place] [address]
--- NOTE | 2018-11-20 20:19 | NUR ---
EMS LEFT WITH PT AT 2009. PT TRANSFERRED TO [facility]RET[facility]ER AND PT TOLERATED WELL. CONTINUES EMS BIPAP. [facility] MADE AWARE OF EMS ARRIVAL TO UNIT.
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
[2018-11-22 08:23] LABS: FUNGUS CULTURE RESULT 1 Candida tropicalis (()); FUNGUS STAIN RESULT 1 Yeast observed (())
[2018-11-25 14:18] LABS: FUNGUS CULTURE RESULT 1 Candida tropicalis (())
[2018-11-26 14:23] LABS: FUNGUS CULTURE RESULT 1 Candida tropicalis (())
[2018-12-13 11:20] LABS: FUNGUS MYCOLOGY CULTURE Final report (())
[2018-12-16 07:10] LABS: FUNGUS MYCOLOGY CULTURE Final report (())
[2018-12-17 06:15] LABS: FUNGUS MYCOLOGY CULTURE Final report (())
== END 2018-11-20 20:10 | disposition hospice, inpatient (51) | DRG 207 ==
LOC: D.ICU 20:07 → D.MS 11-18 22:55 → D.ICU 11-18 22:56
PROVIDERS: Family Medicine; Internal Medicine Pulmonary Disease; ADMIT Internal Medicine Nephrology
PROC: 5A1955Z Respiratory Ventilation, Greater than 96 Consecutive Hours (ICD-10-PCS; 2018-11-09)
PROC: 05HY33Z Insertion of Infusion Device into Upper Vein, Percutaneous Approach (ICD-10-PCS; principal; 2018-11-11)
PROC: 05HY33Z Insertion of Infusion Device into Upper Vein, Percutaneous Approach (ICD-10-PCS; 2018-11-11)
PROC: 0B978ZZ Drainage of Left Main Bronchus, Via Natural or Artificial Opening Endoscopic (ICD-10-PCS; 2018-11-13)
PROC: 0B938ZZ Drainage of Right Main Bronchus, Via Natural or Artificial Opening Endoscopic (ICD-10-PCS; 2018-11-13)
PROC: 5A09357 Assistance with Respiratory Ventilation, Less than 24 Consecutive Hours, Continuous Positive Airway Pressure (ICD-10-PCS; 2018-11-16)
PROC: 0B968ZZ Drainage of Right Lower Lobe Bronchus, Via Natural or Artificial Opening Endoscopic (ICD-10-PCS; 2018-11-17)
PROC: 0B948ZZ Drainage of Right Upper Lobe Bronchus, Via Natural or Artificial Opening Endoscopic (ICD-10-PCS; 2018-11-17)
PROC: 0B938ZZ Drainage of Right Main Bronchus, Via Natural or Artificial Opening Endoscopic (ICD-10-PCS; 2018-11-17)
PROC: 0BC38ZZ Extirpation of Matter from Right Main Bronchus, Via Natural or Artificial Opening Endoscopic (ICD-10-PCS; 2018-11-18)
DX: J96.21 Acute and chronic respiratory failure with hypoxia (principal); J18.1 Lobar pneumonia, unspecified organism; J44.1 Chronic obstructive pulmonary disease with (acute) exacerbation; N17.9 Acute kidney failure, unspecified; E87.3 Alkalosis; E87.1 Hypo-osmolality and hyponatremia; T17.590A Other foreign object in bronchus causing asphyxiation, initial encounter; J98.11 Atelectasis; J44.0 Chronic obstructive pulmonary disease with (acute) lower respiratory infection; J96.22 Acute and chronic respiratory failure with hypercapnia; F17.200 Nicotine dependence, unspecified, uncomplicated; I10 Essential (primary) hypertension; E03.9 Hypothyroidism, unspecified; D53.9 Nutritional anemia, unspecified; E87.6 Hypokalemia; D47.3 Essential (hemorrhagic) thrombocythemia; R79.89 Other specified abnormal findings of blood chemistry; Z85.118 Personal history of other malignant neoplasm of bronchus and lung; Z66 Do not resuscitate